=== PATIENT | male | born 1980 | race African-American/Black ===

== ENCOUNTER 2018-03-19 19:37 | Emergency (ER) | payer SELFPAY ==
--- NOTE | 2018-03-19 20:23 | ED Physician Documentation ---
Chest Pain - HISTORIAN Historian: patient - HPI Stated Complaint: chest pain Chief Complaint: Chest Pain Additional Information: Prisoner with pigastric and precordial intermittent CP for several days. Worse with cough or deep breath. Does not radiate. Became light headed at one point this afternoon. Has been coughing more the last week. Never had this pain before. HX anxiety. Last known Well Date: 03/12/18 Last Known Well Time: 22:00 - ROS CONST: other (more frequent cough) - PAST HX TX risk factors: no pertinent history DVT/PE Risk Factors: other (smokes marijuana) TAD/AAA risk factors: none Neuro deficit: none GI disease: none Lung disease: none Surgeries/Procedures: none Allergies/Adverse Reactions: Allergies Allergy/AdvReac Type Severity Reaction Status Date / Time No Known Allergies Allergy Verified 03/19/18 20:11 Home Medications: Ambulatory Orders Medication Instructions Recorded Albuterol Sulfate 3 ml PO PRN 03/19/18 Hydroxyzine HCl 25 mg PO DAILY 03/19/18 Sertraline HCl 50 mg PO DAILY 03/19/18 - SOCIAL HX Smoking History: other (marijuana) Drug Use: marijuana - FAMILY HX Family HX: other (20 y/o son on HTN med, F recently DX'ed with blood clots??) - REVIEWED ASSESSMENTS Nursing Assessment Reviewed: Yes Vitals Reviewed: Yes Progress - Progress Progress: Report Submission Date: Mar 19, 2018 8:29:01 PM CDT Patient Study Name: LIANNA GEORGE Date: Mar 19, 2018 8:07:22 PM CDT Modality Type: DX Gender: M Description: CHEST : 78 Institution: [facility] Physician: PATRIA HARP - ER Chest, PA and lateral History: Syncope, Chest pain Findings: No infiltrate, effusion or pneumothorax is present. Heart size, mediastinum and pulmonary vascularity are normal. Impression: No active pulmonary disease. Electronically signed on Mar 19, 2018 8:29:01 PM CDT by: Mehrdad Lynn EKG, labs, CXR, reassuring., including serial Trop I's. So cardiology not consulted. ED Results Lab/Radiology - Orders Orders: ED Orders Category Date Time Status Continuous EKG monitoring Q1H Care 03/19/18 19:[address] IV Lock 1T Care 03/19/18 19:46 Active CHEST 1VIEW [RAD] Stat Exams 03/19/18 Ordered ALCOHOL MEDICAL USE ONLY Stat Lab 03/19/18 20:05 Received CBC/PLATELET/DIFF Routine Lab 03/19/18 Ordered CMP Routine Lab 03/19/18 Ordered DRUG SCREEN URINE MEDICAL ONLY Routine Lab 03/19/18 Ordered TROPONIN I (cTnI) Stat Lab 03/19/18 20:04 Received URINALYSIS Routine Lab 03/19/18 Ordered EKG WITH COMPARISON Stat Ther 03/19/18 Ordered Chest Pain Physical Exam - EXAM General Appearance: no acute distress, alert EENT: eye inspection normal, ENT inspection normal, pharynx normal Neck: nml inspection Respiratory: no resp. distress, nml breath sounds CVS: reg. rate & rhythm, no murmur Abdomen: soft, no organomegaly, normal bowel sounds, no distension Skin: warm/dry, normal color Extremities: no evidence of injury, no edema Neuro: CN's nml as tested, motor nml, sensation nml, cognition normal Discharge Clincal Impression: Chest wall pain Referrals: Primary Doctor,No [Primary Care Provider] - 2 Days Condition: Good Disposition: 01 HOME, SELF-CARE Decision to Admit: NO Decision Time: 22:32
--- NOTE | 2018-03-19 20:30 | Diagnostic Imaging Report ---
PATRIA HARP [facility] [id number] [facility] [address] [id number] Report Submission Date: Mar 19, 2018 8:29:01 PM CDT Patient Study Name: LIANNA GEORGE Date: Mar 19, 2018 8:07:22 PM CDT Modality Type: DX Gender: M Description: CHEST : 78 Institution: [facility] Physician: PATRIA HARP Chest, PA and lateral History: Syncope, Chest pain Findings: No infiltrate, effusion or pneumothorax is present. Heart size, mediastinum and pulmonary vascularity are normal. Impression: No active pulmonary disease. Electronically signed on Mar 19, 2018 8:29:01 PM CDT by: Mehrdad LIANG
[2018-03-19 21:01] LABS: BASOPHILS % 0.3 (0.0-1.5); EOSINOPHILS % 1.6 % (0.0-6.8); MEAN CORPUSCULAR HEMOGLOBIN 29.7 pg (28.0-34.0); MEAN CORPUSCULAR VOLUME 93.1 fl (80.0-100.0); MONOCYTES % 5.9 % (0.0-11.0); NEUTROPHILS # 7.6 # k/uL (1.4-7.7)
[2018-03-19 21:27] LABS: eGFR (African) > 60; eGFR (Non-African) > 60
[2018-03-20 00:42] VITALS: BP 142/56
[2018-03-21 00:45] LABS: OCCULT BLOOD,URINE NEGATIVE (NEGATIVE); PH URINE 5.5 (5.0 - 8.0)
[2018-03-21 00:46] LABS: CANNABINOIDS NON NEGATIVE ng/mL (< 50); METHYLENEDIOXYMETHAMPHETAMINE NEGATIVE ng/mL (<500)
[2018-03-21 00:46] LABS: UROBILINOGEN URINE 0.2 Eu (0.2-1.0)
== END 2018-03-19 23:20 | disposition home or self-care (01) ==
LOC: EDBD 19:37 → ED 19:37
DX: R07.89 Other chest pain (principal)
CPT/HCPCS: 71045; 80053; 80320; 80377; 81002; 84484; 85025; 99284; G0480; G0481; S1016